=== PATIENT | male | born 2000 | race Caucasian/White ===

== ENCOUNTER 2022-01-17 22:38 | Emergency (ER) | payer OTHER, SELFPAY ==
[2022-01-17 22:46] VITALS: BP 123/80; PULSE 63; RESP 18; TEMP 36.6; O2SAT 97; BMI 29.2
--- NOTE | 2022-01-17 23:01 | ED.PSYCH ---
HPI - Psych General Chief Complaint: Psychiatric Symptoms Stated Complaint: si Time Seen by Provider: 01/17/22 23:01 Source: patient Mode of arrival: EMS Limitations: no limitations History of Present Illness HPI Narrative: Patient was fooling around with his boss who filed him today and said that he wants to kill himself but he did not mean patient already has a new job starting tomorrow no history of depression suicidal ideation lives with his mother with history of substance abuse Related Data Allergies Allergy/AdvReac Type Severity Reaction Status Date / Time dog dander Allergy Mild Sneezing Verified 01/17/22 22:56 Review of Systems Review of Systems: Yes all other systems are reviewed and are negative [facility] Social History Social History Advance Directives: No Physical Exam Vital Signs: Vital Signs: Last Vital Signs Temp 98 F 01/17/22 22:46 Pulse 63 01/17/22 22:46 Resp 18 01/17/22 22:46 BP 123/80 01/17/22 22:46 Pulse Ox 97 01/17/22 22:46 BMI result Body Mass Index 29.2 Appearance: Alert. Oriented X3. No acute distress. Eyes: PERRLA, No Nystagmus ENT: Pharynx normal. Oral Mucosa moist Neck: Normal inspection. Neck supple. CVS: Normal heart rate and rhythm. Pulses normal. Respiratory: No respiratory distress. Equal air entry bilateral, no wheezing/rales/rhonchi Abdomen: Soft and nontender. Bowel sounds are present, no mass palpable, no CVA tenderness Skin: Skin warm and dry. Normal skin color. Normal skin turgor. Extremities: No lower extremity edema. No calf tenderness psych: Mood stable denies any significant depression no hallucination or delusion no suicidal ideation/homicidal ideation Neuro: Oriented X 3. No motor deficit. No sensory deficit.No cerebellar signs , cranial nerves II-XII intact MDM - Psych MDM Narrative Medical decision making narrative: Patient with no psych history in the past made a comment of killing himself as a joke mother aware of that mother agrees that patient did not really mean it will discharge patient home will give contact info for crisis in case patient has thought likely this in future Lab Data Labs: Lab Results 01/17/22 Range/Units 22:58 COVID-19 ([facility]) Negative (Negative) COVID-19 Clin Com See Note Discharge Plan Discharge Clinical Impression: Adjustment disorder Patient Disposition: Home, Self-Care Instructions: Mood Disorders (ED) Additional Instructions: Follow with therapist if any concerns Interventions: ED Discharge Assessment Last Done: 01/17/22 23:21 Discharge Date/Time: 01/17/22 23:22
[2022-01-17 23:24] LABS: COVID-19 Test Negative (Negative)
== END 2022-01-17 23:22 | disposition home or self-care (01) ==
LOC: HO.ED 23:20
PROVIDERS: Emergency Provider Internal Medicine
DX: F43.29 Adjustment disorder with other symptoms (principal); R45.851 Suicidal ideations; Z72.89 Other problems related to lifestyle; Z56.0 Unemployment, unspecified
CPT/HCPCS: 87635; 99282; 99283